=== PATIENT | male | born 1955 | race Caucasian/White ===

== ENCOUNTER → 2018-05-25 | Outpatient (CLI) | payer BC ==
[~2018-05-25] MED LIST: ASPIRIN325 PO; CENTRUM SILVER1 EAC2 PO; CO Q-10100 MG PO; GLUCOPHAGE XR500 MG PO; LISINOPRIL10 MG PO; METFORMIN HCL500 MG PO; OMEGA-31000 M1 PO
== END ==
LOC: M.RAD 12:34
DX: M51.36 Other intervertebral disc degeneration, lumbar region (principal); M15.9 Polyosteoarthritis, unspecified; I10 Essential (primary) hypertension; E11.9 Type 2 diabetes mellitus without complications

== ENCOUNTER → 2020-05-29 | Outpatient (CLI) | payer OTHER ==
[~2020-05-29] MED LIST changes: +LISINOPRIL20 MG PO; +MELOXICAM15 MG PO; +METFORMIN HCL500 M3 PO; +NORVASC10 MG PO; +SERTRALINE HCL100 MG PO; +SILDENAFIL CIT100 MG PO
== END ==
LOC: M.PC 09:10
PROVIDERS: ATTEND Physical Medicine & Rehabilitation
DX: M47.816 Spondylosis without myelopathy or radiculopathy, lumbar region (principal); M16.0 Bilateral primary osteoarthritis of hip; M43.8X6 Other specified deforming dorsopathies, lumbar region; M46.1 Sacroiliitis, not elsewhere classified

== ENCOUNTER → 2020-08-14 | Outpatient (CLI) | payer OTHER | END | disposition home or self-care (01) | LOC: M.PC 09:54 | PROVIDERS: ATTEND Physical Medicine & Rehabilitation | DX: M53.3 Sacrococcygeal disorders, not elsewhere classified (principal); M46.1 Sacroiliitis, not elsewhere classified; M46.98 Unspecified inflammatory spondylopathy, sacral and sacrococcygeal region; M54.5 Low back pain; I10 Essential (primary) hypertension; E11.9 Type 2 diabetes mellitus without complications; M19.90 Unspecified osteoarthritis, unspecified site; F32.9 Major depressive disorder, single episode, unspecified; F41.9 Anxiety disorder, unspecified; Z98.890 Other specified postprocedural states; Z79.899 Other long term (current) drug therapy ==

== ENCOUNTER → 2020-08-30 | Outpatient (CLI) | payer OTHER | LOC: M.PC 08:51 | PROVIDERS: ATTEND Physical Medicine & Rehabilitation | DX: M47.26 Other spondylosis with radiculopathy, lumbar region (principal); M79.604 Pain in right leg; R20.0 Anesthesia of skin; M48.07 Spinal stenosis, lumbosacral region; M54.5 Low back pain; M47.27 Other spondylosis with radiculopathy, lumbosacral region; M16.9 Osteoarthritis of hip, unspecified ==